=== PATIENT | female | born 1990 | race Caucasian/White ===

== ENCOUNTER 2018-01-04 18:31 | Observation (INO) | payer OTHER ==
[~2018-01-04] VITALS: Ht 170.2 cm; Wt 57.6 kg
[2018-01-04 19:02] LABS: BASOPHILS # (AUTO) 0.1 10^3/uL (0.0-0.1); BASOPHILS % (AUTO) 1 % (0-10); EOSINOPHILS # (AUTO) 0.5 10^3/uL (0.0-0.3); EOSINOPHILS % (AUTO) 7 % (0-10); HEMATOCRIT 44 % (35-52); HEMOGLOBIN 14.9 G/DL (11.5-16.0); LYMPHOCYTES # (AUTO) 2.4 X 10^3 (1.0-4.0); LYMPHOCYTES % (AUTO) 34 % (12-44); MEAN CORPUSCULAR HEMOGLOBIN 31 PG (25-34); MEAN CORPUSCULAR HGB CONC 34 G/DL (32-36); MEAN CORPUSCULAR VOLUME 90 FL (80-99); MEAN PLATELET VOLUME 9.5 FL (7.4-10.4); MONOCYTES # (AUTO) 0.5 X 10^3 (0.0-1.0); MONOCYTES % (AUTO) 7 % (0-12); NEUTROPHILS # (AUTO) 3.6 X 10^3 (1.8-7.8); NEUTROPHILS % (AUTO) 51 % (42-75); PLATELET COUNT 241 10^3/uL (130-400); RED BLOOD COUNT 4.88 10^6/uL (4.35-5.85); RED CELL DISTRIBUTION WIDTH 13.3 % (10.0-14.5)
[2018-01-04 19:25] LABS: ALANINE AMINOTRANSFERASE 16 U/L (0-55); ALBUMIN 4.9 GM/DL (3.2-4.5); ALKALINE PHOSPHATASE 134 U/L (40-136); BUN/CREATININE RATIO 17; CARBON DIOXIDE 24 MMOL/L (21-32); CHLORIDE 102 MMOL/L (98-107); CREATININE SERUM 0.86 MG/DL (0.60-1.30); GFR ESTIMATED > 60; GLUCOSE 91 MG/DL (70-105); POTASSIUM 3.5 MMOL/L (3.6-5.0); SODIUM 139 MMOL/L (135-145); TOTAL PROTEIN 8.2 GM/DL (6.4-8.2)
--- NOTE | 2018-01-04 19:27 | ED Back Pain ---
General Chief Complaint: Back Problems Stated Complaint: POSSIBLE KIDNEY STONE Nursing Triage Note: ARRIVED VIA AMB TO ROOM 07. COMPLAINS OF RIGHT FLANK PAIN STARTING THIS AM. WENT TO [facility] AND WAS SENT HERE. MOM WHO IS A NURSE STATES SHE HAD 3-4+ BLOOD IN HER URINE THAT WAS DONE IN [facility]. Nursing Sepsis Screen: No Definite Risk Source of Information: Patient Exam Limitations: No Limitations History of Present Illness Date Seen by Provider: Jan 04, 2018 Time Seen by Provider: 19:24 Initial Comments The patient is a 27-year-old white female who reported that this morning she had symptoms of burning and frequency suggestive a a urinary tract infection. In the early afternoon she developed right flank pain with some radiation towards the pubis. They then [facility]. A UA there was said to show 3-4+ blood. She is not on her period. She has an infant and is breast- feeding. There is no previous history of kidney stones. There has been no fever and no chills Timing/Duration: 12 Hours Severity: Mild, Moderate Allergies and Home Medications Allergies Coded Allergies: No Known Drug Allergies (Unverified , 01/04/18) Home Medications No Active Prescriptions or Reported Meds Patient Home Medication List Home Medication List Reviewed: Yes Review of Systems Constitutional: see HPI EENTM: no symptoms reported Respiratory: no symptoms reported Cardiovascular: no symptoms reported Gastrointestinal: no symptoms reported Genitourinary: see HPI Musculoskeletal: no symptoms reported Skin: no symptoms reported Psychiatric/Neurological: No Symptoms Reported Past Ukmretg-Lqmabw-Ptpryl Hx Patient Social History Alcohol Use: Denies Use Recreational Drug Use: No Smoking Status: Never a Smoker Recent Foreign Travel: No Contact w/Someone Who Travel: No Recent Infectious Disease Expo: No Recent Hopitalizations: No Past Medical History Surgeries: Yes Appendectomy Respiratory: No Cardiac: No Neurological: No : No (BABY 4 MONTH AND BREAST FEEDING. ) Genitourinary: No Gastrointestinal: No Musculoskeletal: No Endocrine: No HEENT: No Cancer: No Psychosocial: No Integumentary: No Physical Exam Vital Signs Vital Signs - First Documented 01/04/18 18:39 Temp 98.0 Pulse 65 Resp 16 B/P (MAP) 139/89 (106) Pulse Ox 100 O2 Delivery Room Air Capillary Refill : Less Than 3 Seconds Height, Weight, BMI Height: 5'7.00" Weight: 127lbs. oz. 57.299658ob; BMI Method:Stated General Appearance: Anxious HEENT: Normal ENT Inspection Neck: Normal Inspection Cardiovascular: Regular Rate, Rhythm, No Edema, No Gallop, No JVD, No Murmur, Normal Peripheral Pulses Respiratory: Chest Non Tender, Lungs Clear, Normal Breath Sounds, No Accessory Muscle Use, No Respiratory Distress, Accessory Muscle Use Gastrointestinal: Normal Bowel Sounds, No Organomegaly, No Pulsatile Mass, Non Tender, Soft Back: CVA Tenderness (R) Extremity: Normal Capillary Refill, Normal Inspection, Normal Range of Motion, Non Tender, No Calf Tenderness, No Pedal Edema, Calf Tenderness Neurologic/Psychiatric: Alert, Oriented x3, No Motor/Sensory Deficits, Normal Mood/Affect, 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 Norm as Tested, Abnormal Cerebellar Tests Skin: Normal Color, Warm/Dry, Cool, Cyanosis Lymphatic: No Adenopathy, Axilla Node Tender (L), Axilla Node Tender (R) Progress/Results/Core Measures Results/Orders Lab Results Laboratory Tests Test 01/04/18 18:57 01/04/18 19:25 Range/Units White Blood Count 7.0 4.3-11.0 10^3/uL Red Blood Count 4.88 4.35-5.85 10^6/uL Hemoglobin 14.9 11.5-16.0 G/DL Hematocrit 44 35-52 % Mean Corpuscular Volume 90 80-99 FL Mean Corpuscular Hemoglobin 31 25-34 PG Mean Corpuscular Hemoglobin Concent 34 32-36 G/DL Red Cell Distribution Width 13.3 10.0-14.5 % Platelet Count 241 130-400 10^3/uL Mean Platelet Volume 9.5 7.4-10.4 FL Neutrophils (%) (Auto) 51 42-75 % Lymphocytes (%) (Auto) 34 12-44 % Monocytes (%) (Auto) 7 0-12 % Eosinophils (%) (Auto) 7 0-10 % Basophils (%) (Auto) 1 0-10 % Neutrophils # (Auto) 3.6 1.8-7.8 X 10^3 Lymphocytes # (Auto) 2.4 1.0-4.0 X 10^3 Monocytes # (Auto) 0.5 0.0-1.0 X 10^3 Eosinophils # (Auto) 0.5 H 0.0-0.3 10^3/uL Basophils # (Auto) 0.1 0.0-0.1 10^3/uL Sodium Level 139 135-145 MMOL/L Potassium Level 3.5 L 3.6-5.0 MMOL/L Chloride Level 102 98-107 MMOL/L Carbon Dioxide Level 24 21-32 MMOL/L Anion Gap 13 5-14 MMOL/L Blood Urea Nitrogen 15 7-18 MG/DL Creatinine 0.86 0.60-1.30 MG/DL Estimat Glomerular Filtration Rate > 60 BUN/Creatinine Ratio 17 Glucose Level 91 70-105 MG/DL Calcium Level 10.0 8.5-10.1 MG/DL Corrected Calcium 8.5-10.1 MG/DL Total Bilirubin 1.0 0.1-1.0 MG/DL Aspartate Amino Transf (AST/SGOT) 25 5-34 U/L Alanine Aminotransferase (ALT/SGPT) 16 0-55 U/L Alkaline Phosphatase 134 40-136 U/L Total Protein 8.2 6.4-8.2 GM/DL Albumin 4.9 H 3.2-4.5 GM/DL Urine Color JANIE H Urine Clarity SLIGHTLY CLOUDY Urine pH 5 5-9 Urine Specific [place] 1.020 1.016-1.022 Urine Protein 2+ H NEGATIVE Urine Glucose (UA) NEGATIVE NEGATIVE Urine Ketones 3+ H NEGATIVE Urine Nitrite NEGATIVE NEGATIVE Urine Bilirubin NEGATIVE NEGATIVE Urine Urobilinogen NORMAL NORMAL MG/DL Urine Leukocyte Esterase 1+ H NEGATIVE Urine RBC (Auto) 5+ H NEGATIVE Urine RBC TNTC H /HPF Urine WBC 0-2 /HPF Urine Squamous Epithelial Cells 2-5 /HPF Urine Crystals NONE /LPF Urine Bacteria TRACE /HPF Urine Casts NONE /LPF Urine Mucus LARGE H /LPF Urine Culture Indicated NO My Orders Orders - VINICIO LATHAM MD Cbc With Automated Diff (01/04/18 18:34) Comprehensive Metabolic Panel (01/04/18 18:34) Ua Culture If Indicated (01/04/18 18:34) Ketorolac Injection (Toradol Injection) (01/04/18 19:55) Ct Abd/Pelvis Wo(Kidney Stone) (01/04/18 20:03) Ketorolac Injection (Toradol Injection) (01/04/18 20:15) Medications Given in ED Current Medications Medications Dose Ordered Sig/Reji Route Start Time Stop Time Status Last Admin Dose Admin Ketorolac Tromethamine 30 mg ONCE ONCE IVP 01/04/18 20:15 01/04/18 20:16 DC 01/04/18 20:00 30 MG Vital Signs/I&O 01/04/18 18:39 Temp 98.0 Pulse 65 Resp 16 B/P (MAP) 139/89 (106) Pulse Ox 100 O2 Delivery Room Air Blood Pressure Mean: 106 Departure Communication (Admissions) CT report returned and shows hydronephrosis on the right and what appears to be a 7 mm stone in the distal ureter. Discussed patient with Dr. ROWLAND at 0. The patient will be admitted for pain relief and consideration of stone basketing in the a.m. Impression Primary Impression: distal right ureterolithiasis Disposition: ADMITTED INPATIENT Condition: Stable/Unchanged Departure-Patient Inst. Scripts No Active Prescriptions or Reported Meds VINICIO LATHAM MD Jan 04, 2018 19:27
[2018-01-04 19:33] LABS: BILIRUBIN,URINE NEGATIVE (NEGATIVE); CLARITY,URINE SLIGHTLY CLOUDY; COLOR,URINE AMBER; GLUCOSE, URINE (UA) NEGATIVE (NEGATIVE); KETONES,URINE 3+ (NEGATIVE); LEUKOCYTE ESTERASE ,URINE 1+ (NEGATIVE); NITRITE,URINE NEGATIVE (NEGATIVE); PH,URINE 5 (5-9); PROTEIN,URINE 2+ (NEGATIVE); UROBILINOGEN,URINE NORMAL (NORMAL)
[2018-01-04 19:45] LABS: BACTERIA,URINE TRACE /HPF; RBC,URINE TNTC /HPF; WBC,URINE 0-2 /HPF
[2018-01-04] MEDS ORDERED: KETOROLAC 30 MG/ML VIAL ONE (19:55)
[2018-01-04] MEDS ORDERED: KETOROLAC 30 MG/ML VIAL IVP ONE (20:15)
--- NOTE | 2018-01-04 21:01 | Diagnostic Imaging Report ---
PROCEDURE: CT urinary tract, rule out kidney stone. TECHNIQUE: Multiple contiguous axial images were obtained through the abdomen and pelvis without the use of intravenous contrast. DATE: January 04, 2018. COMPARISON: None. INDICATION: 27-year-old female, right flank pain. FINDINGS: There are limitations for evaluation of the abdominal organs, neoplastic processes, abscess, and limited evaluation of the vasculature relating to the lack of intravenous contrast. The visualized portions of the lung bases are clear. The heart is not enlarged. There is no pericardial effusion. The liver is normal in size and contour. The gallbladder is mildly distended. There is no CT apparent gallstone. There is no finding to suggest acute cholecystitis. There is no intrahepatic or extrahepatic bile duct dilation. The main pancreatic duct is not abnormally dilated. Limited noncontrast evaluation of the pancreatic parenchyma is unremarkable. The spleen is not enlarged. The adrenal glands are unremarkable. There are punctate nonobstructing left renal stones. There is high attenuation in the region of the left medullary pyramids. Also, in the region of the right medullary pyramids, there are 1-2 mm nonobstructing right renal stones. There is severe right-sided hydroureteronephrosis. There is a calcification in the right lower abdomen likely reflecting a stone within the distal ureter given the dilation of the right urinary collecting system which measures 6.9 mm in size. The distal ureter is difficult to directly visualize at this level although it is along the expected course. There is a calcification near the region of the left distal ureteral insertion measuring 3.7 mm in size on axial image 123. Given the lack of dilation of the left urinary collecting system, this potentially may reflect a phlebolith. The left distal ureter is also difficult to directly visualize. The urinary bladder is underdistended and not well evaluated. There is a large amount of stool within the rectum. There is an additional large volume colonic stool. The intestinal tract is not distended. There are sutures near the level of the cecum. The appendix is not well seen. There is an air-filled tubular structure in the abdomen on axial image 81, centrally, of unclear exact etiology. This is not definitely the appendix. Acute appendicitis would be difficult to exclude on the basis of this exam. There is no identified free intraperitoneal air. There is no identified drainable fluid collection. There is no sizable volume free pelvic fluid. There is no identified acute pulmonary abnormality. IMPRESSION: CT abdomen and pelvis: 1. Severe right-sided hydroureteronephrosis with right lower quadrant calcification, most likely in the distal ureter, measuring up to 7 mm in size. 2. 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 Nonobstructing 1-2 mm renal stones, bilaterally. 3. The appendix is not well seen. Acute appendicitis is difficult to exclude on the basis of this exam. 4. Large volume colonic stool. Dictated by: Dictated on workstation # [id number]
[2018-01-04] MEDS ORDERED: morphine INJ 10 MG/ML 1ML (SYR OR VIAL) IVP ONE (21:45)
[2018-01-04] MEDS ORDERED: NS IV 1000 ML 1,000 ML IV SCH ×3 (21:45→23:30)
[2018-01-04] MEDS ORDERED: cefTRIAXone FOR IV USE 1,000 MG in NS (IVPB) 50 ML IV ONE (22:15)
[2018-01-04] MEDS ORDERED: NALOXONE 0.4 MG/ML 1 ML (NARCAN) VIAL IV PRN (23:00)
[2018-01-04] MEDS ORDERED: ONDANSETRON 4 MG/2 ML (SDV) Z0FRAN IV PRN ×2 (23:00→23:45)
[2018-01-04] MEDS ORDERED: fentaNYL INJECTION 1,000 MCG in NS (IVPB) 80 ML IV SCH (23:00)
[2018-01-04] MEDS ORDERED: METOCLOPRAMIDE INJ 10 MG/2 ML (REGLAN) IV PRN (23:00)
[2018-01-04] MEDS ORDERED: diphenhydrAMINE 50 MG/ML INJ (BENADRYL) IV PRN (23:00)
[2018-01-04 23:01] VITALS: BP 113/72
[2018-01-04] MEDS ORDERED: CATHETER FLUSH 10 ML SYR IV PRN (23:30)
--- NOTE | 2018-01-04 23:35 | CONSULTATION REPORT ---
DATE OF SERVICE: 01/04/2018 CHIEF COMPLAINT: Right flank pain. HISTORY OF PRESENT ILLNESS: A 27-year-old white lady complained of sudden onset of severe agonizing right-sided flank pain, presented to the emergency room. CAT scan revealed a 7 mm stone in the distal ureter with large hydro, also small stones in the kidneys, both of them. She denies any previous similar episodes. She just had a baby 4 months ago, her first one. There is no family history of stones. REVIEW OF SYSTEMS: Otherwise, negative. ALLERGIES: No known drug allergies. MEDICAL ILLNESSES: None. MEDICATIONS: None. PAST SURGICAL HISTORY: Appendectomy. SOCIAL HISTORY: The patient is , has 1 baby, 4-month-old girl. No smoking, no alcohol, no drugs. PHYSICAL EXAMINATION: VITAL SIGNS: Per chart. GENERAL: Well nourished, well developed in no acute distress. HEAD: Normocephalic. ENT: Unremarkable. NECK: Supple. No bruits. CHEST: Clear, nontender. HEART: Regular rate and rhythm, no murmur. ABDOMEN: Soft. There is right CVA tenderness. EXTREMITIES: Lower extremity, no edema or cyanosis. NEUROLOGIC: Grossly intact. Oriented x3. IMPRESSION: 1. Right distal ureteral stone with hydronephrosis pain. 2. Bilateral renal stones. PLAN: I had a lengthy discussion with the patient and her mother. We are going to go ahead and admit the patient for pain control, put her on Toradol and fentanyl TRANSMISSION SUPERVISOR pump, also Rocephin to cover for any possible infection or sepsis. We will keep her n.p.o. after midnight, will take one day at a time. We may proceed with right ureteroscopy with stone lithotripsy, possible basket, stent or lithotomy. If unable to do so either tomorrow or Friday, we will do ESWL on Friday. This was fully explained to the patient and all her questions were answered. Job ID: [id number] DocumentID: [id number] Dictated Date: 01/04/2018 22:13:17 Senior Manufacturing Engineer Date: 01/04/2018 23:34:45 Dictated By: SOURAV ROWLAND MD
[2018-01-05] VITALS: BP 99/58
[2018-01-05] MEDS: KETOROLAC 30 MG/ML VIAL IV SCH ×2 (00:32→06:07)
[2018-01-05 04:00] VITALS: BP 99/58
--- NOTE | 2018-01-05 06:05 | Diagnostic Imaging Report ---
Clinical indication: Patient with kidney stone. Exam: KUB x-ray. Comparison: CT scan of the abdomen and pelvis performed without contrast dated 01/04/2018. Findings and impression: 1: Bowel gas obscures the region of the pelvis and the known stone in the right UVJ region is not visualized on this exam. Phlebolith is seen in the low left pelvis. 2: There is a nonobstructed bowel gas pattern. There is no evidence of abdominal free air. 3: The visualized bones and extra abdominal soft tissues are unremarkable. Dictated by: Dictated on workstation # [id number]
[2018-01-05 08:00] VITALS: BP 98/63
[2018-01-05] MEDS ORDERED: [UNRECOGNIZED DRUG - CODE] PO (08:45)
[2018-01-05] MEDS ORDERED: SENNA W/DOCUSATE (SENOKOT S) TABLET PO SCH (09:00)
[2018-01-05] MEDS ORDERED: HYDROcodone/APAP 7.5 MG/325 MG (LORTAB, LORCET PLUS) TABLET PO PRN (10:00)
[2018-01-05] MEDS ORDERED: HYDR-3875 PO (10:00)
[2018-01-05] MEDS ORDERED: TAMS0.4C98 PO (10:00)
[2018-01-05] MEDS ORDERED: CEPH-507 PO (10:00)
--- NOTE | 2018-01-05 10:26 | Short Stay Summary-Hospitalist ---
History of Present Illness HPI/Chief Complaint The patient is a 27-year-old white female who grew up in [facility]. Her parents still live here and she had come from [place] to visit with her 4-month- old baby. She was to fly out and back to [place] today but developed a right flank pain and dysuria yesterday which ultimately led to her coming to the emergency room last evening. She was found to have a 7 mm stone in the right distal ureter. In addition there was an abnormal appearing right kidney suggesting pyelonephritis. She was experiencing considerable pain and was admitted for pain control. She was seen by Dr. Moncada in the emergency room. He has cleared her for discharge today with a follow-up visit in the office tomorrow before making plans to go home. She reports that her pain relief was satisfactory through the night. She describes no fever or chills. Source: patient Exam Limitations: no limitations Date Seen 01/05/18 Time Seen by Provider: 10:21 Attending Physician Aline Quinonez MD PCP No,Local Physician Referring Physician Date of Admission Jan 04, 2018 at 21:38 Home Medications & Allergies Home Medications Reviewed patient Home Medication Reconciliation performed by pharmacy medication reconciliations nuclear plant instrument technician and/or nursing. Patients Allergies have been reviewed. Allergies Allergies Coded Allergies No Known Drug Allergies (Unverified01/04/18) Past Honcwtw-Pmlhsh-Dnzgdb Hx Past Med/Social Hx: Reviewed Nursing Past Med/Soc Hx Patient Social History Alcohol Use: Denies Use Recreational Drug Use: No Smoking Status: Never a Smoker Physical Abuse Screen: No Sexual Abuse: No Recent Foreign Travel: No Contact w/other who traveled: No Recent Hopitalizations: No Recent Infectious Disease Expo: No Immunizations Up To Date Pediatric: Yes Seasonal Allergies Seasonal Allergies: No Past Medical History Surgeries: Appendectomy : No (BABY 4 MONTH AND BREAST FEEDING. ) History of Blood Disorders: No Adverse Reaction to Blood [place]: No Review of Systems Constitutional: see HPI EENTM: no symptoms reported Respiratory: no symptoms reported Cardiovascular: no symptoms reported Gastrointestinal: loss of appetite Genitourinary: see HPI : No Musculoskeletal: no symptoms reported Skin: no symptoms reported Psychiatric/Neurological: No Symptoms Reported Physical Exam Physical Exam Vital Signs Vital Signs - First Documented 01/04/18 18:39 Temp 98.0 Pulse 65 Resp 16 B/P (MAP) 139/89 (106) Pulse Ox 100 O2 Delivery Room Air Capillary Refill : Less Than 3 Seconds Height, Weight, BMI Height: 5'7.00" Weight: 127lbs. 0.0oz. 57.716715fc; 19.9 BMI Method:Stated General Appearance: Mild Distress, Other (she appears much less drawn than she did last evening in the emergency room.) Eyes: Bilateral Eye Normal Inspection HEENT: Normal ENT Inspection Neck: Full Range of Motion, Normal Inspection, Non Tender, Supple Respiratory: Chest Non Tender, Lungs Clear, Normal Breath Sounds, No Accessory Muscle Use, No Respiratory Distress Cardiovascular: Regular Rate, Rhythm, No Edema, No Gallop, No JVD, No Murmur, Normal Peripheral Pulses Gastrointestinal: Normal Bowel Sounds, No Organomegaly, No Pulsatile Mass, Non Tender, Soft Back: CVA Tenderness (R) Neurologic/Psychiatric: Alert, Oriented x3, No Motor/Sensory Deficits, Normal Mood/Affect Skin: Normal Color, Warm/Dry Lymphatic: No Adenopathy Results Results/Procedures Labs Laboratory Tests 01/04/18 18:57 Patient resulted labs reviewed. Short Stay Diagnosis Discharge Diagnosis-Short Stay Admission Diagnosis 1.right ureteral stone. 2.right pyelonephritis Final Discharge Diagnosis 1.right ureteral stone. 2.right pyelonephritis Conclusion Plan Discharged to follow-up with Dr. Moncada tomorrow. Clinical Quality Measures DVT/VTE Risk/Contraindication: RFS Level Per Nursing on Admit: 0=No Risk/No VTE PPX VINICIO LATHAM MD Jan 05, 2018 10:26
--- NOTE | 2018-01-05 10:47 | Discharge Instructions ---
Discharge Instructions Patient Instructions Patient Instructions: If necessary you may take 2 of the Lortab 7.5 at a time for pain relief. Fill your prescription of Keflex and start it immediately. Keep appointment with Dr. Moncada tomorrow at his office. Activity & Diet Discharge Diet: No Restrictions Activity as Tolerated: Yes VINICIO LATHAM MD Jan 05, 2018 10:47
== END 2018-01-05 18:27 | disposition home or self-care (01) ==
LOC: ER 18:34 → 4TH 21:38 → UNDOADMOB 21:38 → 4TH 22:59 → UNDODISOB 01-05 11:30
PROVIDERS: ADMIT Family Medicine; ATTEND Family Medicine
DX: N20.1 Calculus of ureter (principal); N20.0 Calculus of kidney; N12 Tubulo-interstitial nephritis, not specified as acute or chronic
CPT/HCPCS: 36415; 74018; 74176; 80053; 81000; 85025; 96361; 96374; 96375; G0378

== ENCOUNTER 2018-01-06 11:51 | Outpatient (CLI) | payer OTHER ==
[~2018-01-06] VITALS: Ht 170.2 cm; Wt 57.6 kg
[~2018-01-06 11:51] MED LIST: CEPH-507 PO; HYDR-3875 PO; TAMS0.4C98 PO; [UNRECOGNIZED DRUG - CODE] PO
== END 2018-01-06 13:54 | disposition home or self-care (01) ==
LOC: PREOP 11:51
PROVIDERS: ATTEND Urology
DX: Z01.818 Encounter for other preprocedural examination (principal)

== ENCOUNTER 2018-01-07 09:04 | Day surgery (SDC) | payer OTHER ==
[~2018-01-07] VITALS: Ht 170.2 cm; Wt 57.6 kg
[2018-01-07] MEDS ORDERED: cefTRIAXone FOR IV USE 1,000 MG in NS (IVPB) 50 ML IV ONE (09:30)
[2018-01-07 09:35] VITALS: BP 116/85
--- NOTE | 2018-01-07 09:37 | Progress Note-Pre Operative ---
Pre-Operative Progress Note H&P Reviewed The H&P was reviewed, patient examined and no changes noted. Date Seen by Provider: Jan 07, 2018 Time Seen by Provider: 09:37 Date H&P Reviewed: Jan 07, 2018 Time H&P Reviewed: 09:37 Pre-Operative Diagnosis: RT DISTAL AND BILATERAL RENAL STONES SOURAV ROWLAND MD Jan 07, 2018 9:37 am
[2018-01-07] MEDS ORDERED: LACTATED RINGERS 1,000 ML IV PRN (10:34)
--- NOTE | 2018-01-07 10:45 | Diagnostic Imaging Report ---
INDICATION: Preop for lithotripsy. Patient has right ureteral stone and kidney stones. TIME OF EXAM: 9:54 AM COMPARISON: Correlation is made with prior abdominal radiograph from 01/04/2018. FINDINGS: Calcific density in the right pelvis is seen measuring 6 mm, likely accounting for the right UVJ calculus noted on CT study three days earlier. Left-sided pelvic phlebolith seen. No definite renal or other ureteral calculi are seen. Bowel gas pattern is unremarkable. IMPRESSION: Right UVJ calculus, similar to the CT study from 3 days earlier. Dictated by: Dictated on workstation # [id number]
--- NOTE | 2018-01-07 11:42 | Progress Note-Post Operative ---
Post-Operative Progess Note Surgeon (s)/Metallurgical Tester (s) Surgeon SOURAV ROWLAND MD Metallurgical Tester: N/A Pre-Operative Diagnosis RT DISTAL AND BILATERAL RENAL STONES Post-Operative Diagnosis SAME Procedure & Operative Findings Date of Procedure 01/07/18 Procedure Performed/Findings RT URETEROSCOPY WITH STONE LITHOTRIPSY Anesthesia Type GENERAL Estimated Blood Loss Estimated blood loss (mL): N/A Specimens/Packing Specimens Removed N/A Packing: N/A SOURAV ROWLAND MD Jan 07, 2018 11:42 am
--- NOTE | 2018-01-07 11:43 | Discharge Inst-Urology ---
Discharge Inst-Urology Patient Instructions/Follow Up Plan KUB on way home Increase oral fluids for 48 hours and then as needed. Diet and Activity as tolerated. If questions or concerns contact your physician Or seek help at emergency department. SOURAV ROWLAND MD Jan 07, 2018 11:43 am
[2018-01-07] MEDS ORDERED: fentaNYL INJECTION 100 MCG/2 ML AMP ONE (11:52)
[2018-01-07] MEDS ORDERED: MIDAZOLAM 2 MG/2 ML (VERSED) VIAL ONE (11:53)
[2018-01-07] MEDS ORDERED: proPOfol 200 MG/20 ML (DIPRIVAN) VIAL IV ONE (12:01)
[2018-01-07] MEDS ORDERED: LIDOCAINE PF 2% 2 ML (XYLOCAINE) VIAL ONE (12:01)
[2018-01-07] MEDS ORDERED: SEVOFLURANE (ULTANE) 15 ML INHAL SOLN ONE ×2 (12:02)
[2018-01-07] MEDS ORDERED: ONDANSETRON 4 MG/2 ML (SDV) Z0FRAN ONE (12:02)
[2018-01-07] MEDS ORDERED: morphine INJ 10 MG/ML 1ML (SYR OR VIAL) IVP ONE (12:45)
[2018-01-07] MEDS ORDERED: ONDANSETRON 4 MG/2 ML (SDV) Z0FRAN IVP PRN (12:45)
[2018-01-07] MEDS ORDERED: FUROSEMIDE 40 MG/4 ML INJ (LASIX) IVP ONE (12:45)
[2018-01-07] MEDS ORDERED: KETOROLAC 30 MG/ML VIAL IVP ONE (12:45)
[2018-01-07] MEDS ORDERED: MEPERIDINE (DEMEROL) INJ 50 MG/ML IVP ONE (12:45)
[2018-01-07 13:20] VITALS: BP 116/69
[2018-01-07 13:25] VITALS: BP 116/69
[2018-01-07 13:50] VITALS: BP 109/73
[2018-01-07 14:20] VITALS: BP 110/72
--- NOTE | 2018-01-07 14:20 | Anesthesia-General Post-Op ---
General Patient Condition Mental Status/LOC: Same as Preop Cardiovascular: Satisfactory Nausea/Vomiting: Absent Respiratory: Satisfactory Pain: Controlled Complications: Absent Post Op Complications Complications None Follow Up Care/Instructions Patient Instructions None needed. Anesthesia/Patient Condition Patient Condition Patient is doing well, no complaints, stable vital signs, no apparent adverse anesthesia problems. No complications reported per nursing. CHUCK HERRERA CRNA Jan 07, 2018 14:20
--- NOTE | 2018-01-07 15:38 | Diagnostic Imaging Report ---
INDICATION: Status post lithotripsy. EXAMINATION: KUB at 3:27 p.m. COMPARISON: Correlation is made with prior study from earlier the same day. FINDINGS: Previously noted calculus in the right pelvis appears to demonstrate some fragmentation, status post lithotripsy. No other calculi are seen. The bowel gas pattern demonstrates moderate stool in the colon. IMPRESSION: Fragmentation of the right pelvic calcification, status post lithotripsy. Dictated by: Dictated on workstation # [id number]
--- NOTE | 2018-01-08 00:07 | OPERATIVE REPORT ---
DATE OF SERVICE: 01/07/2018 PREOPERATIVE DIAGNOSES: 1. Right distal ureteral stone. 2. Bilateral renal stones. POSTOPERATIVE DIAGNOSES: 1. Right distal ureteral stone. 2. Bilateral renal stones. OPERATION PERFORMED: Right ureteroscopy with stone lithotripsy. SURGEON: Florian Rowland MD. ANESTHESIA: General. COMPLICATIONS: None. DESCRIPTION OF PROCEDURE: Under satisfactory general anesthesia, the patient in lithotomy position, genitalia were prepped and draped in the usual sterile fashion. Cystoscope was introduced in the bladder. The bladder was completely normal except for a swollen right intramural portion. I went ahead and cystoscope, passed the ureteroscope 6.9 Occitan semirigid. I visualized the stone that was impacted in the ureter. I broke it completely with the LithoClast and went beyond the stone proximally, there were no more stones, no fragments up to the proximal ureter in antegrade fashion. A lot of fragments down into the bladder. There were no significant fragments at all. Integrity of the ureter was good. I removed the ureteroscope, reinserted the cystoscope into the bladder. The patient tolerated the procedure and anesthesia well and was sent to recovery room in stable condition. Job ID: [id number] DocumentID: [id number] Dictated Date: 01/07/2018 12:35:19 Electrification Adviser Date: 01/07/2018 17:27:30 Dictated By: FLORIAN ROWLAND MD
== END 2018-01-07 14:25 | disposition home or self-care (01) ==
LOC: SDC 09:04
PROVIDERS: ATTEND Urology
DX: N20.1 Calculus of ureter (principal); N20.0 Calculus of kidney; Z11.2 Encounter for screening for other bacterial diseases
CPT/HCPCS: 74018; 84703; 87081